=== PATIENT | male | born 1955 | race Caucasian/White ===

== ENCOUNTER 2018-02-21 09:26 | Emergency (ER) | payer MEDICAID ==
[~2018-02-21] VITALS: Ht 180.3 cm; Wt 97.0 kg
[2018-02-21] MEDS ORDERED: ACETAMINOPHEN 325MG TABLET PO ONE (11:00)
[2018-02-21 13:13] VITALS: BP 154/77
== END 2018-02-21 13:17 | disposition home or self-care (01) ==
LOC: ER 09:26
DX: M77.32 Calcaneal spur, left foot (principal); M19.90 Unspecified osteoarthritis, unspecified site; I10 Essential (primary) hypertension
CPT/HCPCS: 73080; 73110; 73610; 73630; 99283